=== PATIENT | female | born 1945 | race Caucasian/White ===

== ENCOUNTER → 2016-09-18 | Outpatient (CLI) | payer MEDICARE ==
--- NOTE | 2016-09-18 16:03 | BD ---
EXAMINATION TYPE: MG DEXA axial skeleton. DATE OF EXAM: 09/18/2016 COMPARISON: NONE CLINICAL HISTORY: Z78.0 POST MENOPAUSAL WITHOUT HRT Height: 67 Weight: 202 FRAX RISK QUESTIONS: Alcohol (3 or more units per day): NO Family History (Parent hip fracture): NO FRACTURES, Glucocorticoids (More than 3mos): NO (Ex: prednisone, prednisolone, methylprednisolone, dexamethasone, and hydrocortisone). History of Fracture in Adulthood: YES Secondary Osteoporosis: NO 1. Type 1 Diabetes: NO 2. Hyperthyroidism: NO 3. Menopause before 45: NOT SURE 4. Malnutrition: NO 5. Chronic liver disease: NO Rheumatoid Arthritis: NO Current Tobacco Use: NO RISK FACTORS HISTORY OF: History of Wrist Fracture: RT WRIST FX When: AT AGE 67 YRS OLD Family History of Osteoporosis: YES HER MOTHER Active: FAIRLY Diet low in dairy products/other sources of calcium: NO Postmenopausal woman: PARTIAL HYST AT 32 YRS OLD Hyperparathyroidism: NO Adrenal Insufficiency: NO MEDICATIONS: Additional Medications: CALCIUM WITH D AND VIT D, BP MEDS METFORMIN, STATIN FOR CHOLESTEROL, BABY PRIN Additional History: DIABETIC EXAM MEASUREMENTS: Bone mineral densitometry was performed using the [employer] System. Bone mineral density as measured about the Lumbar spine is: ----- L1-L4(G/cm2): 1.074 T Score Values are as follows: ----- L1: -1.3 ----- L2: -1.1 ----- L3: -0.7 ----- L4: -0.7 ----- L1-L4: -0.9 Bone mineral density FIRST BONE DENSTIY TEST FOR HER AT [facility] Bone mineral density about the R hip (g/cm2): 0.831 Bone mineral density about the L hip (g/cm2): 0.817 T Score values are as follows: -----R Neck: -2.4 -----L Neck: -2.6 -----R Total: -1.4 -----L Total: -1.5 Bone mineral density FIRST SCAN AT [facility] FRAX %'S: THERE IS A 23.5% CHANCE OF A MAJOR OSTEOPOROTIC FX AND A 6.3% CHANCE OF HIP FX......PROB ABILITY IN 10/YRS TIME IMPRESSION: Osteoporosis (T Score less than -2.5) as noted by T Score values at the There is increased fracture risk and therapy is usually indicated based on age. Re-Screen 1-2 years. FOR HER LEFT HIP ONLY NOTE: T-SCORE=SD OF THE YOUNG ADULT MEAN.
== END | disposition home or self-care (01) ==
LOC: RADBDWWP 09:07
PROVIDERS: ATTEND Family Medicine
DX: M81.0 Age-related osteoporosis without current pathological fracture (principal); Z78.0 Asymptomatic menopausal state
CPT/HCPCS: 77080

== ENCOUNTER → 2018-03-05 | Outpatient (CLI) | payer MEDICARE ==
--- NOTE | 2018-03-13 10:14 | MM ---
Reason for exam: screening (asymptomatic). Last mammogram was performed 1 year and 1 month ago. History: Patient is postmenopausal. Family history of breast cancer in maternal aunt and breast cancer in mother at age 83. Benign cyst aspiration of the right breast, 2006. Benign cyst aspiration of the left breast, 2002. MG 3D Screening Mammo W/Cad Bilateral CC and MLO view(s) were taken. Prior study comparison: January 29, 2017, bilateral MG 3d screening mammo w/cad. December 18, 2015, bilateral MG 3d screening mammo w/cad. The breast tissue is heterogeneously dense. This may lower the sensitivity of mammography. No significant changes when compared with prior studies. ASSESSMENT: Negative, BI-RAD 1 RECOMMENDATION: Routine screening mammogram of both breasts in 1 year.
== END ==
LOC: RADMAMWWP 08:34
PROVIDERS: ATTEND Family Medicine
DX: Z12.31 Encounter for screening mammogram for malignant neoplasm of breast (principal)
CPT/HCPCS: 77063; 77067

== ENCOUNTER → 2020-01-02 | Outpatient (CLI) | payer MEDICARE ==
--- NOTE | 2020-01-02 16:25 | BD ---
EXAMINATION TYPE: Axial Bone Density DATE OF EXAM: 01/02/2020 COMPARISON: 09/18/2016 CLINICAL HISTORY: 73-year-old female postmenopausal screening Height: 5 FT 7 IN Weight: 193 FRAX RISK QUESTIONS: Alcohol (3 or more units per day): NO Family History (Parent hip fracture): YES Glucocorticoids (More than 3mos): NO (Ex: prednisone, prednisolone, methylprednisolone, dexamethasone, and hydrocortisone). History of Fracture in Adulthood: YES Secondary Osteoporosis: 1. Type 1 Diabetes: NO 2. Hyperthyroidism: NO 3. Menopause before 45: PART AGE 32 4. Malnutrition: NO 5. Chronic liver disease: NO Rheumatoid Arthritis: NO Current Tobacco Use: NO RISK FACTORS HISTORY OF: History of Wrist Fracture: RT WRIST When: 6 YEARS AGO Family History of Osteoporosis: YES Active: NO Diet low in dairy products/other sources of calcium: NO Postmenopausal woman: PART AGE 32 NO SYMPTOMS Take estrogen and/or progesterone medications: NONE Lost more than 2 inches in height since high school: NO MEDICATIONS: Additional Medications: METFORMIN, LISINOPRIL, SIMVASTATIN Additional History: EXAM MEASUREMENTS: Bone mineral densitometry was performed using the [employer] System. Bone mineral density as measured about the Lumbar spine is: ----- L1-L4(G/cm2): 1.124 T Score Values are as follows: ----- L2: -0.9 ----- L3: -0.3 ----- L4: 0.3 ----- L1-L4: -0.5 Bone mineral density has: INCREASED 5.9 % since study of: 2016 Bone mineral density about the R hip (g/cm2): 0.692 Bone mineral density about the L hip (g/cm2): 0.667 T Score values are as follows: -----R Neck: -2.5 -----L Neck: -2.7 -----R Total: -1.6 -----L Total: -1.8 Bone mineral density has: DECREASED -3.4 % since study of: 2017 IMPRESSION: Osteoporosis (T Score less than -2.5). There is increased fracture risk and therapy is usually indicated based on age. Re-Screen 1-2 years. NOTE: T-SCORE=SD OF THE YOUNG ADULT MEAN.
--- NOTE | 2020-01-03 12:26 | MM ---
Reason for exam: screening (asymptomatic). Last mammogram was performed 1 year and 10 months ago. History: Patient is postmenopausal. Family history of breast cancer in maternal aunt and breast cancer in mother at age 83. Benign cyst aspiration of the right breast, 2006. Benign cyst aspiration of the left breast, 2002. Physical Findings: A clinical breast exam by your physician is recommended on an annual basis and results should be correlated with mammographic findings. MG 3D Screening Mammo W/Cad Bilateral CC and MLO view(s) were taken. Prior study comparison: March 05, 2018, bilateral MG 3d screening mammo w/cad. January 29, 2017, bilateral MG 3d screening mammo w/cad. The breast tissue is heterogeneously dense. This may lower the sensitivity of mammography. There are benign appearing round calcifications bilaterally. There is no discrete abnormality. ASSESSMENT: Benign, BI-RAD 2 RECOMMENDATION: Routine screening mammogram of both breasts in 1 year.
== END | disposition home or self-care (01) ==
LOC: RADMAMWWP 12:29
PROVIDERS: ATTEND Family Medicine
DX: Z12.31 Encounter for screening mammogram for malignant neoplasm of breast (principal); M81.0 Age-related osteoporosis without current pathological fracture
CPT/HCPCS: 77063; 77067; 77080

== ENCOUNTER → 2022-07-09 | Outpatient (CLI) | payer MEDICARE ==
[~2022-07-09] MED LIST: DENOSUMAB 60 MG/ML 1 ML SYRINGE SQ NR
[2022-07-09 14:07] VITALS: BP 137/78; PULSE 86; RESP 16; TEMP 98
== END ==
LOC: PROCWHC3 13:50
PROVIDERS: ATTEND Family Medicine
DX: M81.0 Age-related osteoporosis without current pathological fracture (principal)
CPT/HCPCS: 96372; J0897

== ENCOUNTER → 2023-01-13 | Outpatient (CLI) | payer MEDICARE ==
[2023-01-13 13:21] VITALS: BP 112/70; PULSE 78; RESP 16; TEMP 98.2
== END ==
LOC: PROCWHC3 12:41
PROVIDERS: ATTEND Family Medicine
DX: M81.0 Age-related osteoporosis without current pathological fracture (principal)
CPT/HCPCS: 96372; J0897

== ENCOUNTER → 2023-04-15 | Outpatient (CLI) | payer MEDICARE ==
--- NOTE | 2023-04-16 14:54 | MM ---
Reason for Exam: Screening (asymptomatic). Last mammogram was performed 1 year(s) and 2 month(s) ago. Patient History: Menarche at age 14. First Full-Term at age 27. Hysterectomy at age 32. Postmenopausal. Patient has history of breast feeding. 2002, Benign Cyst Aspiration on the left side. 2006, Benign Cyst Aspiration on the right side. Maternal aunt had breast cancer. Mother had breast cancer, age 83. Risk Values: Kady 5 year model risk: 3.5%. NCI Lifetime model risk: 7.0%. Prior Study Comparison: 10/15/2014 Bilateral Screening Mammogram, [facility]. 12/18/2015 Bilateral Screening Mammogram, [facility]. 01/29/2017 Bilateral Screening Mammogram, [facility]. 03/05/2018 Bilateral Screening Mammogram, [facility]. 01/02/2020 Bilateral Screening Mammogram, [facility]. 01/14/2021 Bilateral Screening Mammogram, [facility]. 02/09/2022 Bilateral Screening Mammogram, [facility]. Tissue Density: The breast tissue is heterogeneously dense. This may lower the sensitivity of mammography. Findings: Analyzed By CAD. Symmetry right breast MLO view 6.3 cm from nipple posterior nipple line at middle depth Left breast: There is no suspicious group of microcalcifications or new suspicious mass. Overall Assessment: Incomplete: need additional imaging evaluation, BI-RAD 0 Management: Diagnostic Mammogram of the right breast. [facility] will attempt to contact patient to return for supplemental views and ultrasound if indicated. Patient should continue monthly self-breast exams. A clinical breast exam by your physician is recommended on an annual basis. This exam should not preclude additional follow-up of suspicious palpable abnormalities. Note on Kady scores and lifetime risk: 1. A Kady score greater than 3% is considered moderate risk. If this is the case, consider specialist referral to assess eligibility for a risk reducing agent. 2. If overall lifetime risk for the development of breast cancer is 20% or higher, the patient may qualify for future screening with alternating mammogram and breast MRI. Electronically signed and approved by: Jose Verdugo DO
== END | disposition home or self-care (01) ==
LOC: RADMAMWWP 10:33
PROVIDERS: ATTEND Family Medicine
DX: Z12.31 Encounter for screening mammogram for malignant neoplasm of breast (principal); Z80.3 Family history of malignant neoplasm of breast; Z78.0 Asymptomatic menopausal state
CPT/HCPCS: 77063; 77067

== ENCOUNTER → 2023-04-21 | Outpatient (CLI) | payer MEDICARE ==
--- NOTE | 2023-04-21 10:43 | MM ---
Reason for Exam: Additional evaluation requested from abnormal screening. Last screening mammogram was performed less than 1 month ago. Patient History: Menarche at age 14. First Full-Term at age 27. Hysterectomy at age 32. Postmenopausal. Patient has history of breast feeding. 2002, Benign Cyst Aspiration on the left side. 2006, Benign Cyst Aspiration on the right side. Maternal aunt had breast cancer. Mother had breast cancer, age 83. Risk Values: Kady 5 year model risk: 3.5%. NCI Lifetime model risk: 7.0%. Tissue Density: Right: The breast tissue is heterogeneously dense. This may lower the sensitivity of mammography. Findings: Analyzed By CAD. The central MLO nodular asymmetry does not persist on additional views. Findings suggest superimposition shadow or a tiny cyst that has resolved in the interval. Overall Assessment: Benign, BI-RAD 2 Management: Screening Mammogram of both breasts in 1 year. See note below in regards to patient's increased 5 year Kady score. Results were given to the patient verbally at the time of exam. Patient should continue monthly self-breast exams. A clinical breast exam by your physician is recommended on an annual basis. This exam should not preclude additional follow-up of suspicious palpable abnormalities. Note on Kady scores and lifetime risk: 1. A Kady score greater than 3% is considered moderate risk. If this is the case, consider specialist referral to assess eligibility for a risk reducing agent. 2. If overall lifetime risk for the development of breast cancer is 20% or higher, the patient may qualify for future screening with alternating mammogram and breast MRI. Electronically signed and approved by: Gurwinder Rodriguez M.D. Radiologist
== END | disposition home or self-care (01) ==
LOC: RADMAMWWP 10:21
PROVIDERS: ATTEND Family Medicine
DX: R92.8 Other abnormal and inconclusive findings on diagnostic imaging of breast (principal); Z78.0 Asymptomatic menopausal state; Z80.3 Family history of malignant neoplasm of breast
CPT/HCPCS: 77065; G0279; 77061

== ENCOUNTER → 2024-02-02 | Outpatient (CLI) | payer MEDICARE ==
[2024-02-02 14:28] VITALS: BP 134/77; PULSE 85; RESP 16; TEMP 98.2
[2024-02-02] MEDS: DENOSUMAB 60 MG/ML 1 ML SYRINGE SQ NR (14:29)
== END ==
LOC: PROCWHC3 14:16
PROVIDERS: ATTEND Family Medicine
DX: M81.0 Age-related osteoporosis without current pathological fracture (principal)
CPT/HCPCS: 96372; J0897

== ENCOUNTER → 2024-07-06 | Outpatient (CLI) | payer MEDICARE ==
--- NOTE | 2024-07-06 10:10 | MM ---
Reason for Exam: Screening (asymptomatic). Last mammogram was performed 1 year(s) and 3 month(s) ago. Patient History: Menarche at age 14. First Full-Term at age 27. Hysterectomy at age 32. Postmenopausal. Patient has history of breast feeding. 2002, Benign Cyst Aspiration on the left side. 2006, Benign Cyst Aspiration on the right side. Maternal aunt had breast cancer. Mother had breast cancer, age 83. Risk Values: Kady 5 year model risk: 3.4%. NCI Lifetime model risk: 6.5%. Prior Study Comparison: 02/09/2022 Bilateral Screening Mammogram, [facility]. 04/15/2023 Bilateral MG 3D screening mammo w/cad, [facility]. 04/21/2023 Right MG 3D work up w/cad RT, [facility]. Tissue Density: The breasts are heterogeneously dense, which may obscure small masses. Findings: Analyzed By CAD. Right breast: There is no suspicious group of microcalcifications or new suspicious mass. Benign-appearing calcifications right breast. Left breast: There is no suspicious group of microcalcifications or new suspicious mass. Benign-appearing calcifications left breast. Overall Assessment: Benign, BI-RAD 2 Management: Screening Mammogram of both breasts in [address] [facility] will attempt to contact patient to return for supplemental views and ultrasound if indicated. Patient should continue monthly self-breast exams. A clinical breast exam by your physician is recommended on an annual basis. This exam should not preclude additional follow-up of suspicious palpable abnormalities. Note on Kady scores and lifetime risk: 1. A Kady score greater than 3% is considered moderate risk. If this is the case, consider specialist referral to assess eligibility for a risk reducing agent. 2. If overall lifetime risk for the development of breast cancer is 20% or higher, the patient may qualify for future screening with alternating mammogram and breast MRI. [facility], , 07/06/2024 10:07 AM. Electronically signed and approved by: Jose Verdugo DO
--- NOTE | 2024-07-06 11:44 | BD ---
EXAMINATION TYPE: Axial Bone Density DATE OF EXAM: 07/06/2024 CLINICAL HISTORY: 78 years old Female. ICD-10 CODE: Z78.0 POST RODRIGUE , Additional History: Height: 67" Weight: 186lbs FRAX RISK QUESTIONS: Alcohol (3 or more units per day): No Family History (Parent hip fracture): Yes, Father Glucocorticoids (More than 3mos): No (Ex: prednisone, prednisolone, methylprednisolone, dexamethasone, and hydrocortisone). History of Fracture in Adulthood: Yes, both wrists Secondary Osteoporosis: 1. Type 1 Diabetes: No 2. Hyperthyroidism: No 3. Menopause before 45: Yes 4. Malnutrition: No 5. Chronic liver disease: No Rheumatoid Arthritis: No Current Tobacco Use: No RISK FACTORS HISTORY OF: Hip Fracture (Right/Left): No Spine Fracture: No History of Wrist Fracture: Bilateral wrist fractures When: About 4-5 years ago Surgery to Spine/Hip(right/left)/Wrist (right/left): No MEDICATIONS: Thyroid Medications: No Osteoporosis Medications: Yes Which medication: Prolia How Long: Approx 3 years EXAM MEASUREMENTS: Bone mineral densitometry was performed using the [employer] System. Bone mineral density as measured about the Lumbar spine is: ----- L1-L4(G/cm2): 1.060 T Score Values are as follows: ----- L1: -2.2 ----- L2: -2.1 ----- L3: -0.5 ----- L4: 0.4 ----- L1-L4: -1.0 Z Score Values are as follows: ----- L1: -1.0 ----- L2: -0.9 ----- L3: 0.7 ----- L4: 1.5 ----- L1-L4: 0.1 Bone mineral density has: decreased -5.7% since study of: 01/02/2020 Bone mineral density about the R hip (g/cm2): 0.805 Bone mineral density about the L hip (g/cm2): 0.751 T Score values are as follows: -----R Neck: -2.1 -----L Neck: -2.6 -----R Total: -1.6 -----L Total: -2.0 Z Score values are as follows: -----R Neck: -0.4 -----L Neck: -1.0 -----R Total: -0.2 -----L Total: -0.6 Bone mineral density has: decreased -2.3% since study of: 01/02/2020 FRAX%s: The graph provided illustrates a 47.8% chance for a major osteoporotic fx and a 33.7% chance for the hips probability for fx in 10 years time. IMPRESSION: Osteoporosis (T Score less than -2.5). There is increased fracture risk and therapy is usually indicated based on age. Re-Screen 1-2 years. NOTE: T-SCORE=SD OF THE YOUNG ADULT MEAN. [facility], , 07/06/2024 11:42 AM
== END | disposition home or self-care (01) ==
LOC: RADMAMWWP 09:30
PROVIDERS: ATTEND Family Medicine
DX: Z12.31 Encounter for screening mammogram for malignant neoplasm of breast (principal); R92.333 Mammographic heterogeneous density, bilateral breasts; Z78.0 Asymptomatic menopausal state; Z80.3 Family history of malignant neoplasm of breast
CPT/HCPCS: 77063; 77067; 77080

== ENCOUNTER → 2024-09-12 | Outpatient (CLI) | payer MEDICARE ==
--- NOTE | 2024-09-13 15:58 | MR ---
INDICATION: Patient age:Female; 79 years old; Reason for study: M54.50 LOW BACK PAIN; PHH. COMPARISONS: Thoracolumbar spine radiographs 09/11/2024, lumbar spine radiographs 09/03/2024. TECHNIQUE: Multi planar, multi sequence imaging was performed utilizing: T1-weighted, T2-weighted, a nd turbo inversion recovery imaging of the lumbar spine. The patient was not given contrast. FINDINGS: Superior central endplate compression deformity of the L1 vertebral body with approximately 50% height loss centrally. Approximately 3 mm of retropulsion of the posterior cortex. There is corbin esponding low T1 linear signal with increased STIR signal representing edema. There is involvement of the anterior and posterior cortices. Corresponds to prior radiographs. Anterior wedge compression deformity of the T12 vertebral body with corresponding low T1 signal and i ncreased STIR signal. Approximately 50% height loss with 3 mm of retropulsion. There is involvement o f the anterior and posterior cortices. This corresponds to prior radiographs. The remaining vertebral bodies demonstrate normal height. Type II Modic changes of the lower lumbar s pine at the L4-L5 disc endplates. Multilevel disc desiccation is present without significant disc hei ght loss. The conus medullaris and the distal spinal cord do appear unremarkable with regards to the ir signal intensity and morphology. T11-T12: Minimal spinal canal stenosis secondary to disc bulge with retropulsion of the posterior T12 endplate. No neural foraminal stenosis. T12-L1: No significant disc pathology is identified. The spinal canal and neural foramen are patent L1-L2: No significant disc pathology is identified. The spinal canal and neural foramen are patent. L2-L3: No significant disc pathology is identified. The spinal canal and neural foramen are patent. L3-L4: No significant disc pathology is identified. The spinal canal and neural foramen are patent. L4-L5: Broad-based disc bulge with ligamentum flavum buckling. No significant spinal canal stenosis. Bilateral facet arthropathy. Mild to moderate bilateral neural foraminal stenosis. L5-S1: The intervertebral disc appears round on its contour posteriorly without significant mass eff ect upon the thecal sac. Advanced left facet arthropathy. The right neural foramen is patent. Mild le ft neural foraminal stenosis. Other significant findings: Bilateral T2 hyperintense simple appearing thin-walled cyst with largest on the left measuring 3.9 cm.. IMPRESSION: 1. Acute/subacute compression deformities involving the T12 and L1 vertebral bodies corresponding to prior radiographs. Approximately 50% height loss with 3 mm retropulsion each. 2. No definitive evidence for disc herniation or significant spinal canal stenosis. 3. Multilevel disc degeneration with associated osteoarthritic changes as described above. [facility], , 09/13/2024 3:56 PM
== END | disposition home or self-care (01) ==
LOC: RADMRIMAIN 18:12
PROVIDERS: ATTEND Orthopaedic Surgery
DX: S22.080A Wedge compression fracture of T11-T12 vertebra, initial encounter for closed fracture (principal); S32.010A Wedge compression fracture of first lumbar vertebra, initial encounter for closed fracture; S32.050A Wedge compression fracture of fifth lumbar vertebra, initial encounter for closed fracture; M51.360 Other intervertebral disc degeneration, lumbar region with discogenic back pain only; M47.816 Spondylosis without myelopathy or radiculopathy, lumbar region
CPT/HCPCS: 72148

== ENCOUNTER → 2024-09-14 | Outpatient (CLI) | payer MEDICARE ==
--- NOTE | 2024-09-14 12:42 | XR ---
EXAMINATION TYPE: XR chest 2V DATE OF EXAM: 09/14/2024 12:06 PM COMPARISON: None CLINICAL INDICATION: Female, 79 years old with history of Z01.818 PRE SURGICAL; pain TECHNIQUE: XR chest 2V Frontal and lateral views of the chest. FINDINGS: Lungs/Pleura: There is flattening of the diaphragm with increased lucency of the lungs. No evidence o f pneumothorax, pleural effusion or focal consolidation. Pulmonary vascularity: Unremarkable. Heart/mediastinum: Cardiomediastinal silhouette is unremarkable. Musculoskeletal: No acute osseous pathology. IMPRESSION: 1. No acute cardiopulmonary disease process. 2. COPD changes. [facility], , 09/14/2024 12:40 PM
[2024-09-14 14:58] LABS: Basophils # (A) 0.03 X 10*3/uL (0.00-0.10); Basophils % (A) 0.3 %; Eosinophils # (A) 0.01 X 10*3/uL (0.04-0.35); Eosinophils % (A) 0.1 %; HCT 49.4 % (37.2-46.3); HGB 16.0 g/dL (12.0-15.0); Immature Grans, Automated 0.40 %; Lymphocytes # (A) 0.94 X 10*3/uL (0.90-5.00); Lymphocytes % (A) 8.5 %; MCH 27.8 pg (27.0-32.0); MCHC 32.4 g/dL (32.0-37.0); MCV 85.8 FL (80.0-97.0); Monocytes # (A) 0.26 X 10*3/uL (0.20-1.00); Monocytes % (A) 2.3 %; NRBC Per 100 WBC 0 X 10*3/uL (0.00-0.01); Neutrophils # (A) 9.79 X 10*3/uL (1.80-7.70); Neutrophils % (A) 88.4 %; Platelet Count 257 X 10*3/uL (140-440); RBC 5.76 X 10*6/uL (4.10-5.20); RDW 12.6 % (11.5-14.5); WBC 11.07 X 10*3/uL (4.50-10.00)
[2024-09-14 15:13] LABS: ALT 17 U/L (8-44); AST 14 U/L (13-35); Albumin 4.8 g/dL (3.8-4.9); Albumin/Globulin Ratio 2.29 Ratio (1.60-3.17); Alkaline Phosphatase 119 U/L (41-126); Anion Gap 14.10 mmol/L (4.00-12.00); BUN/Creat Ratio 31.43 Ratio (12.00-20.00); Blood Urea Nitrogen 22.0 mg/dL (9.0-27.0); Calcium 10.5 mg/dL (8.7-10.3); Carbon Dioxide 22.9 mmol/L (21.6-31.8); Chloride 103 mmol/L (96-109); Globulin 2.1 g/dL (1.6-3.3); Glucose 136 mg/dL (70-110); Potassium 4.7 mmol/L (3.5-5.5); Sodium 140 mmol/L (135-145); Total Protein 6.9 g/dL (6.2-8.2)
[2024-09-14 15:20] LABS: INR 0.98 sec (0.93-1.11); Prothrombin Time 11.0 sec (9.9-11.9)
== END | disposition home or self-care (01) ==
LOC: LABPAT 11:29
PROVIDERS: ATTEND Orthopaedic Surgery
DX: Z01.818 Encounter for other preprocedural examination (principal); S32.010A Wedge compression fracture of first lumbar vertebra, initial encounter for closed fracture; S22.080A Wedge compression fracture of T11-T12 vertebra, initial encounter for closed fracture
CPT/HCPCS: 36415; 71046; 80053; 85025; 85610; 93005

== ENCOUNTER 2024-09-19 06:07 | Day surgery (SDC) | payer MEDICARE ==
[2024-09-19] MEDS ORDERED: LIDOCAINE 1% (10MG/ML) FOR IV START INTRADERMA PRN (06:14)
--- NOTE | 2024-09-19 06:54 | P.HPOR ---
History of Present Illness H&P Date: 09/13/24 .D:Date: 09/13/24 : 03:17pm .T:Title: FOLLOW UP THORACOLUMBAR FRACTURE Clinical Summary Nadine Farias presented for evaluation and management of acute vertebral compression fractures involving L1 and T12 vertebrae that occurred on August 21. Nadine reported significant improvement in her pain levels since starting appropriate medication on Wednesday, with resolution of sharp pain and muscle spasms, though she continues to experience stiffness and soreness. Physical examination revealed tenderness over the fracture site in the buttock and hip region rather than directly over the spine, with palpable deformity consistent with vertebral compression fractures. After extensive discussion of treatment options, including conservative management, vertebroplasty with bone cement injection, and surgical stabilization with rods and screws, Nadine elected to proceed with minimally invasive vertebroplasty due to her 's current chemotherapy treatment and her desire for a shorter recovery period. Nadine has underlying osteoporosis despite treatment with Prolia injections and recent bone density testing. She also has a medical history significant for type 2 diabetes, previous appendectomy, and anaphylactic reaction to penicillin. The vertebroplasty procedure was scheduled as a same-day outpatient procedure with the goal of providing immediate pain relief and fracture stabilization while minimizing surgical morbidity and recovery time. SURGICAL PLAN: T12, L2 KYPHOPLASTY WITH BIOPSY Chief Complaint Vertebral compression fractures with back pain History Nadine Farias presents today for evaluation regarding her vertebral compression fractures involving L1 and T12 that occurred on August 21. She reports feeling significantly better today compared to Wednesday, when she believes she was not on the correct medication regimen. Since starting appropriate pain management, her sharp pain has resolved and muscle spasms have decreased considerably, though she continues to experience stiffness and soreness. Nadine took her muscle relaxer and pain medication approximately 20 minutes prior to the visit in anticipation of the uncomfortable car ride on [employer]. She describes her current pain as being located primarily in the back part of her buttock and hip area rather than directly in her spine. Nadine has a history of osteoporosis and has been receiving Prolia injections for several years, with recent bone density testing completed though results were not discussed in detail. Her medical history is significant for type 2 diabetes, emergency appendectomy, and anaphylactic shock reaction to penicillin. 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 Her is currently undergoing chemotherapy treatment, which influences her treatment decision- making process as she does not want to be incapacitated for an extended period. Nadine denies any fever, chills, shortness of breath, chest pain, perineal numbness and tingling, bowel or bladder incontinence/retention. Nadine's past social, medical, family, surgical history, as well as review of systems, have been reviewed. Please refer to the Neurosurgery History and Physical form that has been scanned into our electronic medical record system. 16 points review of systems completed and as stated in HPI, all other systems reviewed are negative. Physical Exam On examination today, Nadine is alert and oriented times three, in no acute distress, appearing well nourished and well hydrated with overall alignment well maintained. - Functionally, Nadine demonstrates independent dkc-hb-covlq transition in less than 5 seconds and ambulates without assistive devices. - Surgical Incision: Not applicable - TTP: Tenderness to palpation noted over the fracture site in the buttock and hip region, with palpable deformity consistent with vertebral compression fracture creating a prominent knuckle-like projection - Musculoskeletal examination reveals full range of motion in all major joints without restriction or pain - 5/5 strength in all major muscle groups of bilateral upper extremities. - 5/5 strength in all major muscle groups of the bilateral lower extremities. - Neurologically, sensation is intact to light touch throughout C3-T1 and L2-S1 dermatomes, with 2/4 reflexes in bilateral upper and lower extremities. - Barroso's, clonus, Babinski, and Ronald's signs are all negative, with no tensioning signs present. - Cranial nerves II-XII are grossly intact. - Vascular examination demonstrates 2/4 distal pulses in all four extremities without edema, and compartments are soft and compressible. - The abdomen is soft and non-tender to palpation, with normal, non-labored respirations noted. Imaging Imaging studies reviewed show acute compression fractures of L1 and T12 verteb ajay. L1 fracture is identified as a new acute fracture. T12 fracture is also new and appears more severe than the L1 fracture. Nadine was noted to have two old fractures in addition to these new acute fractures. MRI imaging was mentioned but detailed findings were not reviewed during this visit. The fractures demonstrate the characteristic deformity pattern consistent with osteoporotic compression fractures in the thoracolumbar transitional zone. Assessment 1. Acute compression fracture of L1 vertebra M48.50 2. Acute compression fracture of T12 vertebra M48.50 3. Osteoporosis with current pathological fracture M80.00 4. Chronic pain syndrome G89.4 Plan - SURGICAL RECOMMENDATION: - Proceed with minimally invasive KYPHOPLASTY WITH BIOPSY with bone cement injection for L1 and T12 compression fractures - Same-day outpatient procedure with four small poke holes approximately pencil eraser size - Bone cement injection using needle approximately pen-sized to stabilize fractures and provide immediate pain relief - Nadine counseled extensively on treatment options including conservative management, vertebroplasty alone, and surgical stabilization with rods and screws - Nadine elected vertebroplasty due to 's current chemotherapy treatment and desire for shorter recovery period - MEDICATIONS: - Continue current pain management regimen including muscle relaxers as Nadine reports significant improvement since starting appropriate medications - Nadine to continue Prolia injections for osteoporosis management - ACTIVITY: - Nadine will be ambulatory same day of procedure - Expected to resume normal activities within days following vertebroplasty - Physical therapy referral post-procedure to work on muscle strengthening and support - SCHEDULING: - Coordinate with gripper attacher Sherita to arrange KYPHOPLASTY within one week - Procedure duration approximately 30 minutes - Same-day discharge anticipated - PATIENT COUNSELING: - Extensive discussion provided regarding natural history of compression fractures (3+ months healing time with conservative management) - Risks and benefits of vertebroplasty explained including immediate pain relief and fracture stabilization - Alternative surgical option with rods and screws discussed but deferred due to Nadine's preference and social circumstances - Nadine understands that vertebroplasty addresses pain and fracture stability but does not correct spinal deformity - Option to pursue additional surgical intervention in future if needed Medical Necessity Note: Ms. Nadine Farias presents with acute vertebral compression fractures of L1 and T12 vertebrae that occurred on August 21, demonstrating significant pain, functional limitation, and radiographic evidence of fracture. Despite appropriate pain medication management showing some improvement in sharp pain and muscle spasms, she continues to experience persistent stiffness, soreness, and tenderness over the fracture sites with palpable deformity consistent with vertebral compression. The patient has underlying osteoporosis despite ongoing treatment with Prolia injections, predisposing her to these pathologic fractures. Conservative management would require approximately 3+ months healing time with continued pain and limited function during this period. Given the patient's current life circumstances, including caring for a undergoing chemotherapy treatment, prolonged conservative management presents significant hardship and potential for continued suffering. Vertebroplasty is medically necessary to provide immediate pain relief, stabilize the fractures to prevent further collapse, improve functional capacity, and minimize recovery time, allowing the patient to return to her caregiving responsibilities promptly. Surgical Rationale Note: Minimally invasive vertebroplasty with bone cement injection is the optimal surgical approach for this patient's acute T12 and L1 compression fractures. This procedure is specifically indicated given the patient's acute, painful osteoporotic compression fractures, confirmed by imaging studies, which demonstrate characteristic deformity patterns in the thoracolumbar transitional zone. Vertebroplasty offers several advantages over alternative treatments in this case: 1) it provides immediate stabilization of the fractured vertebrae, preventing further collapse; 2) it offers rapid pain relief through mechanical stabilization of painful micromotion at the fracture sites; 3) it can be performed as a same-day outpatient procedure with four small incisions approximately pencil eraser in size; 4) it allows for rapid recovery and return to activities compared to more invasive stabilization procedures or prolonged conservative management; and 5) it minimizes surgical morbidity which is par ticularly important given the patient's comorbidities including type 2 diabetes and her critical role as a caregiver to her undergoing chemotherapy. More invasive surgical stabilization with rods and screws was considered but deemed unnecessary at this time given the nature of the fractures and the patient's preference for minimally invasive intervention. Risks and Benefits Statement: KYPHOPOLASTY for acute compression fractures of L1 and T12 offers significant benefits including immediate pain relief, stabilization of fracture sites, prevention of further vertebral collapse, improved functional mobility, and rapid return to daily activities with minimal recovery time. These benefits are particularly important given Ms. Farias's role as a caregiver for her undergoing chemotherapy. However, the procedure carries potential risks that have been thoroughly discussed with the patient, including: cement leakage into surrounding tissues or venous structures (which could potentially cause pulmonary embolism in rare cases), infection at injection sites, allergic reaction to the bone cement materials, bleeding, temporary increased pain following the procedure, nerve injury (extremely rare), and the possibility that pain relief may not be complete or may be temporary. Additionally, the patient understands that while vertebroplasty stabilizes the current fractures, it does not treat the underlying osteoporosis or prevent future fractures at other vertebral levels, emphasizing the continued importance of her Prolia treatments, calcium and vitamin D supplementation, and eventual physical therapy for core strengthening. Follow Up 2 weeks post-procedure Plan at Next Visit Post-operative evaluation following vertebroplasty procedure Patient Education Medications Reviewed: YES In our visit today Nadine Farias and I have had a chance to go over my understanding of Nadine's current condition, the natural course history without intervention and various interventional options. Questions were invited and answered, and Nadine wishes to proceed as outlined above. I will be sure to keep you updated after Nadine Farias returns here for further follow-up. Thank you again for your referral. Please do not hesitate to contact me if you have any further questions. Signed and authenticated by: Gilmer Valencia DO [facility] [address] [place] [id number] This message is confidential, intended only for the named recipient(s) and may contain information that is privileged or exempt from disclosure under applicable law. If you are not the intended recipient(s), you are notified that the dissemination, distribution or copying of this information is strictly prohibited. If you received this message in error, please notify the sender then delete this message. # SIGNED BY Gilmer Valencia (GOO)09/13/2024 03:27PM Past Medical History Past Medical History: Diabetes Mellitus, Hyperlipidemia Additional Past Medical History / Comment(s): HX OF POLYPS, History of Any Multi-Drug Resistant Organisms: None Reported Past Surgical History: Appendectomy, Hysterectomy Additional Past Surgical History / Comment(s): COLONOSCOPY Past Anesthesia/Blood Transfusion Reactions: Motion Sickness Additional Past Anesthesia/Blood Transfusion Reaction / Comment(s): STATES SHE DID NOT RECEIVE ENOUGH ANESTHESIA FOR COLONOSCOPY ONCE. Smoking Status: Never smoker Medications and Allergies Home Medications Medication Instructions Recorded Confirmed Type metFORMIN HCL [Glucophage] 500 mg PO HS 11/20/13 09/14/24 History Calcium Carbonate [Calcium] 1 tab PO DAILY 07/09/22 09/14/24 History Cholecalciferol (Vitamin D3) 1 tab PO BID 07/09/22 09/14/24 History [Vitamin D3 (50 Mcg = 2000 Iu) Chew Tab] Simvastatin [Zocor] 20 mg PO HS 07/09/22 09/14/24 History lisinopriL 1 tab PO DAILY 07/09/22 09/14/24 History Empagliflozin [Jardiance] 20 mg PO DAILY 01/13/23 09/14/24 History Biotin [Rupi-Lipt-Txmxa] 10,000 mcg PO DAILY 09/14/24 09/14/24 History Cyclobenzaprine [Flexeril] 5 mg PO DIRECTED 09/14/24 09/14/24 History HYDROcodone/APAP 5-325MG [Oley 1 tab PO DIRECTED 09/14/24 09/14/24 History 5-325] Preservison 1 tab PO DAILY 09/14/24 09/14/24 History predniSONE [Deltasone] 20 mg PO DIRECTED 09/14/24 09/14/24 History Allergies Allergy/AdvReac Type Severity Reaction Status Date / Time etodolac [From Lodine] Allergy Unknown LEG PAIN Verified 09/14/24 13:46 Sulfa (Sulfonamide Allergy Unknown Rash/Hives Verified 09/14/24 13:46 Antibiotics) tuberculin, purified protein Allergy Unknown FALSE Verified 09/14/24 13:46 deriva POSITIVE, [Tuberculin,Purif.Prot.Deriv.] TOLD NOT TO TAKE TB SKIN TEST amoxicillin Allergy Anaphylaxis Verified 09/14/24 13:46 Penicillins Allergy Anaphylaxis Verified 09/14/24 13:46 tamoxifen Allergy Anaphylaxis Verified 09/14/24 13:46 Physical Examination Osteopathic Statement: *. No significant issues noted on an osteopathic structural exam other than those noted in the History and Physical/Consult.
[2024-09-19] MEDS ORDERED: HYDROmorphone 0.5 MG/0.5 ML SYRINGE IVP PRN (07:00)
[2024-09-19] MEDS: IV FLUID CONTINUATION 1,000 ML IV ONE ×2 (07:07→09:47)
[2024-09-19 07:08] LABS: Glucose,Whole Blood 148 mg/dL (70-110)
[2024-09-19] MEDS: ONDANSETRON 4 MG/2 ML VIAL IVP ONE (07:14)
[2024-09-19] MEDS: LACTATED RINGERS 1,000 ML IV SCH (07:14)
[2024-09-19] MEDS: DEXAMETHASONE SOD PHOSPHATE 4 MG/ML 1 ML VIAL IV ONE (07:14)
[2024-09-19 07:22] VITALS: TEMP 97.6
[2024-09-19] MEDS ORDERED: LIDOCAINE 1% INJ 10MG/ML (20 ML MDV) ONE (07:25)
[2024-09-19] MEDS ORDERED: MIDAZOLAM 2 MG/2 ML VIAL ONE (07:25)
[2024-09-19] MEDS ORDERED: SUCCINYLCHOLINE CHLORIDE 200 MG/10 ML VIAL IV ONE (07:25)
[2024-09-19] MEDS ORDERED: PROPOFOL 10 MG/ML 20 ML VIAL IV ONE (07:25)
[2024-09-19] MEDS ORDERED: ROCURONIUM 10 MG/ML (5 ML VIAL) IV ONE (07:25)
[2024-09-19] MEDS ORDERED: fentaNYL (PF) 50 MCG/ML 2 ML AMP ONE (07:25)
[2024-09-19] MEDS ORDERED: GLYCOPYRROLATE 0.2 MG/ML 2 ML VIAL ONE (07:25)
[2024-09-19] MEDS ORDERED: NEOSTIGMINE 1 MG/ML 10 ML VIAL ONE (07:25)
[2024-09-19] MEDS: BUPIVACAINE (PF) 0.5% 30 ML VIAL SQ ONE (08:02)
[2024-09-19] MEDS: LIDOCAINE 2%-EPI 1:100,000 20 ML VIAL SQ ONE (08:02)
[2024-09-19] MEDS: IOPAMIDOL M200 10 ML VIAL MISCELLANE ONE (08:02)
--- NOTE | 2024-09-19 08:27 | P.OP ---
Date of Procedure: 09/19/24 Preoperative Diagnosis: 1. T12 VCF 40% WEDGE COMPRESSION 2. L1 70% WEDGE COMPRESSION 3. LOW BACK PAIN 4. DEBILITY RELATED. Postoperative Diagnosis: 1. T12 VCF 40% WEDGE COMPRESSION 2. L1 70% WEDGE COMPRESSION 3. LOW BACK PAIN 4. DEBILITY RELATED. Procedure(s) Performed: 1. T12 KYPHOPLASTY WITH BIOPSY 2. L1 KYPHOPLASTY WITH BIOPSY Implants: FELIPE Anesthesia: GETA Surgeon: Gilmer Valencia [employer]1: Pat Oneill (was present and assisted with all aspects of the case from position to dressing placement) Estimated Blood Loss (ml): 5 IV fluids (ml): 500 Urine output (ml): 0 Pathology: none sent Condition: stable Disposition: PACU Indications for Procedure: Nadine Farias presented for evaluation and management of acute vertebral compression fractures involving L1 and T12 vertebrae that occurred on August 21. Nadine reported significant improvement in her pain levels since starting appropriate medication on Wednesday, with resolution of sharp pain and muscle spasms, though she continues to experience stiffness and soreness. Physical examination revealed tenderness over the fracture site in the buttock and hip region rather than directly over the spine, with palpable deformity consistent with vertebral compression fractures. After extensive discussion of treatment options, including conservative management, vertebroplasty with bone cement injection, and surgical stabilization with rods and screws, Nadine elected to proceed with minimally invasive vertebroplasty due to her 's current chemotherapy treatment and her desire for a shorter recovery period. Nadine has underlying osteoporosis despite treatment with Prolia injections and recent bone density testing. She also has a medical history significant for type 2 d iabetes, previous appendectomy, and anaphylactic reaction to penicillin. The vertebroplasty procedure was scheduled as a same-day outpatient procedure with the goal of providing immediate pain relief and fracture stabilization while minimizing surgical morbidity and recovery time. SURGICAL PLAN: T12, L2 KYPHOPLASTY WITH BIOPSY Description of Procedure: THORACIC 12 AND Lumbar (1) Kyphoplasty The patient was seen and examined in the preoperative area. All preoperative protocols were followed. Informed consent was obtained, risks and benefits of the procedure were discussed at length. Risks including bleeding infection damage to the surrounding tissue and risk of reoperation were discussed with the patient. Risk of anesthesia up to and including was discussed with the patient. These are outlined in the risk review. They were willing to accept these risks and all the risks of surgery. The patient was given a weight-based dose of antibiotics in the form of 2 g Ancef. The patient was seen and evaluated by the anesthesia team who deemed them fit for surgery. The site was marked, the patient was willing to proceed with the procedure. The patient was transferred to the operative suite by the Department of anesthesia. They were then drifted off to sleep by the department anesthesia and GETA was performed. The patient tolerated this well. Once confirmation of lines and ventilation the patient was transferred to a prone Cecil table very carefully. All bony prominences including wrists, elbows, axilla, chest, hips, and thighs, and feet were padded very well. Special attention was paid to the genitalia, and these were padded accordingly. SCDs were placed on bilateral lower extremities and were connected. Arms were well padded and placed on arm boards up and out in the 90/90 position. Once in position, again we confirmed good ventilation capabilities and that lines were running appropriately. The patients Lumbar spine was then exposed. 1010s were placed outlining the incision site. Standard alcohol was used to clean the incision site and allowed to dry. C-arm was used to needle localize the pedicles at L1 and bio-danielle the patient and confirm level for incision which was marked with a skin marker. Operative briefing was performed with all teams and everyone in agreement to proceed. The patient was then prepped and draped in a normal sterile fashion. Timeout was then performed, and all parties agreed with the procedure to be performed. Skin zuhair was made. Jamshitdi was passed into the T12 vertebral body via the pedicle. This was done with biplane fluoroscopy. Once in good position in the body the trochar is removed. Biopsy needle was passed into the body and a biopsy was taken. Drill was then passed and biopsy material taken from drill as well. Curette then used to reduce endplate and create more space. Balloon was then passed an inflated which showed good reduction of endplate on AP and Lateral and confirmed central placement. The cement was then placed and pt remained stable. Good fill of cement was seen without extravasation. Once good fill, the Jamshedi was removed and the wound irrigated. Skin zuhair was made. Jamshitdi was passed into the L1 vertebral body via the pedicle. This was done with biplane fluoroscopy. Once in good position in the body the trochar is removed. Biopsy needle was passed into the body and a biopsy was taken. Drill was then passed and biopsy material taken from drill as well. Curette then used to reduce endplate and create more space. Balloon was then passed an inflated which showed good reduction of endplate on AP and Lateral and confirmed central placement. The cement was then placed and pt remained stable. Good fill of cement was seen without extravasation. Once good fill, the Jamshedi was removed and the wound irrigated. The skin was closed with a simple stitch and dressed with a bandaid. The patient was then transferred off the table back to their hospital bed a- traumatically. They were extubated by the department of anesthesia. They were then transferred to PACU in stable condition having tolerated the procedure with no complications.
--- NOTE | 2024-09-19 08:48 | XR ---
EXAMINATION TYPE: XR lumbar spine 2 or 3V, FL guidance operating room DATE OF EXAM: 09/19/2024 FLUOROSCOPY kyphoplasty T12-L1, 55sec fl time, DAP=[phone] 2 images are submitted. [facility], Workstation: [facility], 09/19/2024 8:46 AM
[2024-09-19 09:21] VITALS: RESP 16
[2024-09-19 10:24] VITALS: BP 148/68; PULSE 76
== END 2024-09-19 10:51 | disposition home or self-care (01) ==
LOC: OR 06:07
PROVIDERS: ATTEND Orthopaedic Surgery
DX: S22.080A Wedge compression fracture of T11-T12 vertebra, initial encounter for closed fracture (principal); S32.010A Wedge compression fracture of first lumbar vertebra, initial encounter for closed fracture; E11.9 Type 2 diabetes mellitus without complications; E78.5 Hyperlipidemia, unspecified; M19.90 Unspecified osteoarthritis, unspecified site; I10 Essential (primary) hypertension; Z86.0100 Personal history of colon polyps, unspecified; Z90.49 Acquired absence of other specified parts of digestive tract; Z90.710 Acquired absence of both cervix and uterus; Z88.2 Allergy status to sulfonamides; Z88.0 Allergy status to penicillin; Z88.1 Allergy status to other antibiotic agents; Z79.84 Long term (current) use of oral hypoglycemic drugs; Z79.899 Other long term (current) drug therapy; X58.XXXA Exposure to other specified factors, initial encounter
CPT/HCPCS: 72100; 22513; 22515; J2250; J0330; J1100; J2710; J0690; J2405; J2003; J3010; J2704; Q9966; J0665; J1596; 88307